=== PATIENT | female | born 1995 | race Caucasian/White ===

== ENCOUNTER 2025-02-20 04:05 | Emergency (ER) | payer MEDICAID, OTHER ==
[~2025-02-20] VITALS: Ht 162.6 cm; Wt 77.1 kg
[2025-02-20] MEDS ORDERED: KETOROLAC TROMETHAMINE INJ 30 MG/ML VIAL ONE (05:33)
[2025-02-20] MEDS: KETOROLAC TROMETHAMINE INJ 30 MG/ML VIAL IM ONE (05:34)
[2025-02-20 05:45] VITALS: BP 128/79; TEMP 98.4; O2SAT 99
== END 2025-02-20 05:47 | disposition home or self-care (01) ==
LOC: ER 04:09
DX: R51.9 Headache, unspecified (principal); H53.149 Visual discomfort, unspecified
CPT/HCPCS: 99283; 96372; J1885